=== PATIENT | female | born 1990 | race African-American/Black ===

== ENCOUNTER 2019-01-01 11:57 | Observation (INO) | payer MEDICAID ==
[~2019-01-01] VITALS: Ht 175.3 cm; Wt 121.6 kg
[2019-01-01 16:05] LABS: CLARITY URINE TURBID (CLEAR); COLOR URINE DARK YELLOW (YELLOW); KETONES URINE TRACE (NEGATIVE); LEUKOCYTE ESTERASE URINE 3+ (NEGATIVE); NITRITE URINE POSITIVE (NEGATIVE); OCCULT BLOOD URINE 1+ (NEGATIVE); PROTEIN URINE 3+ (NEGATIVE); SPECIFIC GRAVITY URINE 1.025 (1.005-1.030)
[2019-01-01 16:16] LABS: BASOPHILS % 0.6 % (0.0-2.0); EOSINOPHILS % 0.9 % (0.0-5.0); HEMOGLOBIN. 10.9 g/dL (12.0-16.0); LYMPHOCYTES % 19.8 % (20.0-50.0); MEAN CORPUSCULAR HEMOGLOBIN 24.1 pg (28.0-32.0); MEAN CORPUSCULAR VOLUME 75.3 fL (81.0-99.0); MEAN PLATELET VOLUME 10.6 fl (7.4-10.4); MONOCYTES % 5.2 % (2.0-8.0); NEUTROPHILS % 73.5 % (40.0-76.0); PLATELET 201 x1000/uL (130-400); RED BLOOD CELL COUNT 4.52 mill/uL (4.2-5.4)
== END 2019-01-01 16:00 | disposition home or self-care (01) ==
LOC: 8 EST LDRP 11:57
PROVIDERS: ADMIT Obstetrics & Gynecology; ATTEND Obstetrics & Gynecology
DX: O62.9 Abnormality of forces of labor, unspecified (principal); Z3A.37 37 weeks gestation of pregnancy
CPT/HCPCS: 36415; 76805; 76818; 81003; 85025; 86592; 86706; 86762; 86850; 86900; 86901; 87070; 87077; 87086; 99281; G0378

== ENCOUNTER 2019-01-09 09:49 | Observation (INO) | payer MEDICAID ==
[~2019-01-09] VITALS: Ht 175.3 cm; Wt 117.9 kg
[2019-01-09] MEDS ORDERED: PNV11TAB MT (10:37)
[2019-01-09] MEDS ORDERED: LACTATED RINGERS 1,000 ML IV SCH ×2 (11:04→11:15)
== END 2019-01-09 12:09 | disposition home or self-care (01) ==
LOC: 8 EST LDRP 09:49
PROVIDERS: ADMIT Obstetrics & Gynecology; ATTEND Obstetrics & Gynecology
DX: O62.9 Abnormality of forces of labor, unspecified (principal); Z3A.00 Weeks of gestation of pregnancy not specified
CPT/HCPCS: 82962; 96360; 99281; G0378